=== PATIENT | female | born 1955 | race Hispanic/Latino ===

== ENCOUNTER 2021-12-06 10:45 | Outpatient (CLI) | payer MEDICARE ==
--- NOTE | 2021-12-06 14:17 | XRay Report ---
LEFT HAND 3 VIEW(S) INDICATION / CLINICAL INFORMATION: LEFT HAND PAIN M25.532 COMPARISON: None available. FINDINGS: BONES / JOINT(S): Acute, transverse fracture of the distal radius with moderate impaction of fracture fragments and dorsal angulation. No definite intra-articular involvement. Additionally, there is a m inimally displaced fracture of the ulnar styloid process. 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 SOFT TISSUES: Soft tissue swelling about the fracture site. ADDITIONAL FINDINGS: None. Signer Name: Desmond Cortes MD Signed: 12/06/2021 2:12 PM Workstation Name: [id number]
--- NOTE | 2021-12-06 14:17 | XRay Report ---
LEFT WRIST 3 VIEW(S) INDICATION / CLINICAL INFORMATION: LEFT WRIST PAIN M25.532 COMPARISON: None available. FINDINGS: BONES / JOINT(S): Acute, mildly displaced transverse fracture of the distal radius with dorsal angula tion of the distal fracture fragment. Additional minimally displaced fracture of the ulnar styloid pr ocess. Moderate degenerative changes, most notable along the first CMC joint. SOFT TISSUES: Soft tissue swelling about the fracture site. ADDITIONAL FINDINGS: None. Signer Name: Desmond Cortes MD Signed: 12/06/2021 2:13 PM Workstation Name: [id number]
== END 2021-12-06 10:46 | disposition home or self-care (01) ==
LOC: XRAY 10:45
PROVIDERS: ATTEND Internal Medicine
DX: S52.612A Displaced fracture of left ulna styloid process, initial encounter for closed fracture (principal); S52.502A Unspecified fracture of the lower end of left radius, initial encounter for closed fracture; M19.032 Primary osteoarthritis, left wrist; M79.89 Other specified soft tissue disorders; M19.042 Primary osteoarthritis, left hand; X58.XXXA Exposure to other specified factors, initial encounter; Y93.89 Activity, other specified; Y92.89 Other specified places as the place of occurrence of the external cause; Y99.8 Other external cause status